=== PATIENT | male | born 1995 | race African-American/Black ===

== ENCOUNTER 2023-11-01 18:36 | Emergency (ER) | payer OTHER ==
[~2023-11-01] VITALS: Ht 182.9 cm; Wt 88.6 kg
[2023-11-01 18:51] VITALS: BP 129/84; PULSE 75; RESP 18; TEMP 98.2; O2SAT 100
[2023-11-01] MEDS: KETOROLAC 15MG/ML VIAL IV ONE (20:45)
== END 2023-11-01 21:34 | disposition home or self-care (01) ==
LOC: ER 18:36
DX: S63.256A Unspecified dislocation of right little finger, initial encounter (principal); W18.39XA Other fall on same level, initial encounter; Y93.89 Activity, other specified; Y92.89 Other specified places as the place of occurrence of the external cause; Y99.8 Other external cause status
CPT/HCPCS: 99285; 26770; 73130; 99152; J1885